=== PATIENT | male | born 1965 | race Caucasian/White ===

== ENCOUNTER 2023-11-16 06:40 | Outpatient (OUT) | payer OTHER, SELFPAY ==
--- NOTE | 2023-11-16 06:45 | US_ITS ---
[address] [address] Patient Name: FELISA CHILDS MRN: [id number] date: 1965 Sex: M Assigned Patient Location: [place] Current Patient Location: [place] Accession/Order Number: [id number] Exam Date: 11/16/2023 07:00 Report Date: 11/16/2023 07:53 At the request of: EBONY DE LEON Procedure: US renal BI EXAMINATION: US renal BI HISTORY: Hematuria R31.9 COMPARISON: No relevant comparison available. TECHNIQUE: Ultrasound examination was performed of the bladder. FINDINGS: Right Kidney: Normal in size, contour and cortical echotexture. The kidney measures 11.1 x 6.1 x 6.5 cm. The cortex measures 1.3 cm. No solid cortical mass, hydronephrosis or obstructing nephrolithiasis Left Kidney: Normal in size, contour and cortical echotexture. The kidney measures 12.2 x 5.3 x 4.5 cm. The cortex measures 1.3 cm. No solid cortical mass, hydronephrosis or obstructing nephrolithiasis. Minimal pelviectasis Urinary bladder volume: 85 cc US/US renal BI IMPRESSION: No acute abnormality. No explanation for patient's hematuria Electronically authenticated by: EBONY BENAVIDES Date: 11/16/2023 07:53
== END 2023-11-16 06:41 | disposition home or self-care (01) ==
LOC: US 06:40
PROVIDERS: PCP Family Medicine; Visit Provider Family Medicine
DX: R31.9 Hematuria, unspecified (principal)
CPT/HCPCS: 76775